=== PATIENT | female | born 1945 | race Caucasian/White ===

== ENCOUNTER 2018-06-28 12:13 | Day surgery (SDC) | payer MEDICARE, OTHER ==
[~2018-06-28] VITALS: Ht 167.6 cm; Wt 117.9 kg
[~2018-06-28 12:13] MED LIST: ALEVE220 MG PO; AMBIEN10 MG PO; CALCIUM600 MG PO; DILAUDID4 MG PO; DOCUSATE SODIU100 MG PO; HYDROCODON-ACE1 EA10 PO; LOSARTAN-HCTZ1 EACH PO; MAGNESIUM250 MG PO; MELOXICAM15 MG PO; MELOXICAM7.5 MG PO; METFORMIN HCL850 MG PO; MULTIVITAMINS1 EAC7 PO; OXYCONTIN10 MG PO; TRAMADOL HCL50 MG PO; XARELTO10 MG PO
--- NOTE | 2018-06-28 13:54 | NUR ---
06/28/18 1354 Bhavani Umana 1344- PT ARRIVES TO PACU. PT ALERT AND ORIENTED. PT REPORTS NO PAIN OR NAUSEA. RESP EVEN AND UNLABORED. OXYGEN SAT HIGH 90'S TO 100% ON RA. 1346- BLOOD SUGAR 107 TAKEN BY SHERRIE AVERY. 1350- PT PASSING FLATUS. 1352- PT SITTING UP IN BED. PT REPORTS NO DIZZINESS, NAUSEA, OR PAIN.
--- NOTE | 2018-06-28 18:51 | OR ---
[facility] [address], [place] [address] Signed DATE OF OPERATION: 06/28/2018 SURGEON: Rosa Sanchez MD PREOPERATIVE DIAGNOSES: 1. History of polyps. 2. History of fundoplication without reflux symptoms currently. POSTOPERATIVE DIAGNOSIS: Sigmoid and left-sided diverticulosis. PROCEDURE: Total colonoscopy to cecum. ANESTHESIA: Intravenous sedation, fentanyl 150 mcg, Versed 8 mg. INDICATION: This 72-year-old white woman is a morbidly obese and is a patient of Susie Lane PA-C. She underwent colonoscopy in the past for benign polyps. She has also had upper endoscopy in the past. She has undergone a colonoscopy in [address] Fowler, community support specialist in [place] as well as upper endoscopy performed. Endoscopy at that time showed no abnormality. Colonoscopy has shown polyps in the past as well as diverticulosis. She has what sounds like a Rubén fundoplication in the [facility]. Review of her operative note for colonoscopy and upper endoscopy in 2011 showed some gastric polyps, which were benign with no esophageal polyps and diverticular changes on colonoscopy. She was admitted at this time to undergo surveillance colonoscopy, but not upper endoscopy. She understands the risks of bleeding, infection, perforation, and wished to proceed. FINDINGS: The prep was good. Complete colonoscopy was undertaken to the cecum. She had diverticula of the sigmoid and left colon, but no polyps or colitis. There were no other abnormalities of concern. DESCRIPTION OF PROCEDURE: The patient was brought to the endoscopy suite and placed in lateral decubitus position given intravenous sedation to the point of slurred speech and nystagmus. Digital rectal exam was found to be normal. The Olympus video upper endoscope was passed in the rectum and manipulated throughout the colon ultimately intubating the cecum itself. Abdominal Electronically Signed By: ROSA SANCHEZ MD 06/28/18 1851 PATIENT NAME: EARLE VILLEGAS OPERATIVE REPORT DATE OF : 47 REPORT #: [id number] PHYSICIAN: ROSA SANCHEZ MD PCP: SUSIE LANE PA-C REPORT IS CONFIDENTIAL AND NOT TO BE RELEASED WITHOUT AUTHORIZATION [facility] [address], [place] [address] Signed wall stabilization was required for full intubation of the cecum, which was accomplished. The ileocecal valve and appendiceal orifice were normal. The scope was withdrawn from that point. Examination throughout showed no sign of abnormality other than diverticula at the left and sigmoid colon. Retroflexed view was normal as well of the rectum. CONCLUDING DIAGNOSES: 1. No evidence of recurrent polyps. 2. Diverticulosis of sigmoid and left colon. PLAN: Recommend high-fiber diet. Consideration for repeat in 5 years based on prior history of polyps, sooner if clinically indicated. She will return to the ongoing care of SARIKA Rodriguez. MD GALLITO Azevedo/NEERAJ /[id number] cc: Susie Lane PA-C Copies: SUSIE LANE PA-C ~ Electronically Signed By: ROSA SANCHEZ MD 06/28/18 1851 PATIENT NAME: EARLE VILLEGAS SUZANNE OPERATIVE REPORT DATE OF : 47 REPORT #: [id number] PHYSICIAN: ROSA SANCHEZ MD PCP: SUSIE LANE PA-C REPORT IS CONFIDENTIAL AND NOT TO BE RELEASED WITHOUT AUTHORIZATION
== END 2018-06-28 14:30 | disposition home or self-care (01) ==
LOC: OPS 12:13 → DS 12:13 → OPS 13:00 → DS 13:00 → OPS 14:30
PROVIDERS: Surgery
PROC: 0DJD8ZZ Inspection of Lower Intestinal Tract, Via Natural or Artificial Opening Endoscopic (ICD-10-PCS; principal; 2018-06-28 13:00)
DX: Z12.11 Encounter for screening for malignant neoplasm of colon (principal); K57.30 Diverticulosis of large intestine without perforation or abscess without bleeding; E11.9 Type 2 diabetes mellitus without complications; I10 Essential (primary) hypertension; K21.0 Gastro-esophageal reflux disease with esophagitis; G47.30 Sleep apnea, unspecified; E66.01 Morbid (severe) obesity due to excess calories; Z98.890 Other specified postprocedural states; Z99.89 Dependence on other enabling machines and devices; Z86.010 Personal history of colon polyps
CPT/HCPCS: G0105; 99153; G0500; J0690; J2250; J3010; J7120

== ENCOUNTER 2020-04-10 06:50 | Day surgery (SDC) | payer MEDICARE, OTHER ==
[~2020-04-10] VITALS: Ht 167.6 cm; Wt 220.0 kg
[~2020-04-10 06:50] MED LIST changes: +LISINOPRIL10 MG PO; +OZEMPIC0.25 MG/0.
[2020-04-10] MEDS ORDERED: COZAAR100 MG PO (07:31)
--- NOTE | 2020-04-10 08:08 | NUR ---
PT USED GLUCOMETER IMPLANT AND GOT A CBG RESULT OF 95. OUR MACHINE HAD A HIGHER READING OF 116. THE PT LEFT IN THE CARE OF RADIOLOGY STAFF AT 0800.
--- NOTE | 2020-04-10 11:49 | NUR ---
PT RETURNED FROM RADIOLOGY AT 1000. AMBULATING IN HALLWAY WAITING FOR OR PROCEDURE TO START.
--- NOTE | 2020-04-10 13:24 | NUR ---
CHECKING ON PT-TAKEN TO IMAGING. WILL FOLLOW
--- NOTE | 2020-04-10 14:03 | NUR ---
04/10/20 1403 Sheets,Erika 1335 PT ARRIVED TO PACU ON 10L VIA MASK, RESP EVEN AND UNLABORED. VSS. 1336 CBG 88, ASPHALT HEATER OPERATOR AWARE AND NO NEW ORDERS. 1340 O2 REMVOED AND PT DENIES NUASEA. PT SIPPING JUICE PER ASPHALT HEATER OPERATOR. HOB INCREASED. 1343 O2 SAT 90%, NC PLACED AT 2L. PAIN MEDICATION GIVEN PER EMAR, PT REPORTS 8/10 PAIN. 1401 PT REPORTS PAIN IS BETTER NOW. 6-7/10 PAIN.
[2020-04-10] MEDS ORDERED: ACETAMINOPHEN500 MG PO (14:10)
[2020-04-10] MEDS ORDERED: IBUPROFEN600 MG PO (14:10)
[2020-04-10] MEDS ORDERED: OXYCODON-ACETA1 EAC2 PO (14:10)
--- NOTE | 2020-04-10 14:36 | NUR ---
REPORT RECIEVED FROM CLINICAL REHABILITATION SPECIALIST. PT DENIES NAUSEA BUT DOES REPORT 5/10 LEFT BREAST PAIN. CRACKERS AND WATER PROVIDED IN ANTICIPATION OF PO MEDICATION. PT ORIENTED TO TIME AND SITUATION.
--- NOTE | 2020-04-10 14:47 | NUR ---
STEADY ON FEET WITH ONE PERSON STAND BY ASSIST FOR AMBULATION TO BATHROOM. VOIDS 400ML CLEAR YELLOW URINE. RETURNS TO BED WITHOUT DIFFICULTY. REPORT GIVEN TO NS.KMR
--- NOTE | 2020-04-10 15:00 | NUR ---
VAISHNAVI BULLOCK CONTACTED FROM CANCER CLINIC TO CONSULT WITH PT REGARDING SUPPORT GARMET. VAISHNAVI IN WITH PT AND PROVIDED SUPPORT GARMET AND ANSWER PT QUESTIONS AND CONCERNS.
--- NOTE | 2020-04-10 15:45 | NUR ---
DISCHARGE INSTRUCTIONS DISCUSSED WITH PT AND FAMILY. QUESTIONS AND CONCERNS ADDRESSED. PT GETTING DRESSED WITH ASSISTANCE FROM DAUGHTER IN LAW.
--- NOTE | 2020-04-10 16:12 | NUR ---
PT DRESSED AND UP TO USE THE RESTROOM. AMBULATES INDEPENDENTLY AND VOIDS WITH NO COMPLICATIONS. PT AND FAMILY WAITING IN FOR TRANSPORTATION.
--- NOTE | 2020-04-10 16:32 | NUR ---
PT LEFT THE UNIT VIA WHEELCHAIR. PT TRANSFERED INDEPENDENTLY FROM WHEELCHAIR TO VEHICLE WITH NO COMPLICATIONS. TRANSPORTATION PROVIDED BY SON, DAUGHTER IN LAW AND 1 OTHER FAMILY MEMBER.
--- NOTE | 2020-04-11 12:08 | OR ---
[facility] [address], [place] [address] Signed DATE OF OPERATION: 04/10/2020 SURGEON: Rosa Sanchez MD PREOPERATIVE DIAGNOSES: 1. Left lateral infiltrating ductal breast carcinoma. 2. Morbid obesity. POSTOPERATIVE DIAGNOSES: 1. Left lateral infiltrating ductal breast carcinoma. 2. Morbid obesity; sentinel lymph node on frozen pathology, negative for metastatic disease. PROCEDURE: 1. Injection of methylene blue dye for sentinel lymph node identification. 2. Left deep axillary sentinel lymph node biopsy. 3. Left needle localized partial mastectomy. ANESTHESIA: General endotracheal; Rosa White CRNA. INDICATIONS: This morbidly obese, 279-pound white woman is a patient of Susie Lane PA-C, underwent mammographies by Dr. Ruiz and found to have a suspicious lesion in the left lateral breast. Ultrasonographic evaluation was undertaken and core biopsy performed confirming infiltrating ductal carcinoma. She has no family history of breast cancer and no risk factors of same. Clinical examination on my part shows a palpable mass in the lateral breast, though Dr. Ruiz thought this may be more related to hematoma. She has no clinically suspicious lymph nodes of the left axilla. She is admitted at this time to undergo excision of the primary tumor as well as sentinel lymph node biopsy. She understands risks of bleeding, infection, cosmetic deformity, need for other indicated procedures, need for additional surgery, and of course a plan already anticipated for postoperative radiation therapy. She understands this and she wished to proceed. FINDINGS: An intensely a blue lymph node was noted of the axilla on the left side concordant to radioactive nuclide uptake. There were no other sentinel nodes identified in the Electronically Signed By: ROSA SANCHEZ MD 04/11/20 1208 PATIENT NAME: EARLE VILLEGAS OPERATIVE REPORT DATE OF : 47 REPORT #: [id number] PHYSICIAN: ROSA SANCHEZ MD PCP: SUSIE LANE PA-C REPORT IS CONFIDENTIAL AND NOT TO BE RELEASED WITHOUT AUTHORIZATION [facility] [address], [place] [address] Signed axilla. The tumor itself was easily palpable, actually the wire emanated to it in a confirmatory way, wide excision was undertaken with a clinically negative margin, and hemoclips applied to the biopsy cavity to further direct radiation therapy postoperatively. DESCRIPTION OF PROCEDURE: The patient was brought to the operating room, given a general endotracheal anesthetic. She had been received from Radiology Suite with the wire emanating from the left breast. The wire was trimmed down in size and the breast prepared with spray Betadine solution and draped sterilely. Prior to preparation, I injected 2 mL of methylene blue dye subdermal and subepithelial area in the upper outer aspect of the left areola. The C-Trak probe was applied to the left axilla after placing in a sterile sleeve showing an area of intense uptake. A small transverse incision was made in that area. Dissection was carried through the deep subcutaneous fatty tissue to the axilla, where a blue lymphatic was easily identified and followed to a blue lymph node over a cm in size. This was concordant to the probe findings as well. The sentinel node was excised and passed for pathology as a sentinel lymph node #1. Further evaluation of the axilla showed no other significant uptake of radionuclide and I saw no other blue lymphatics to indicate additional sentinel lymph nodes. The wound was then packed with plain gauze. The lateral aspect of the left breast was palpated and an obvious mass concordant to the tumor was noted. The wire emanated more medial and superior to this. A lateral curvilinear incision was made and dissection carried through the dermis with electrocautery. Wide resection was undertaken with electrocautery, ultimately removing the wire through the incision, noting it to be concordant to the palpable lesion in fact. Wide excision was undertaken prior to explantation of the specimen from the breast, it was marked with a long stitch laterally, a short stitch superiorly, and a double stitch in the deep aspect. Given the palpable nature of the lesion, the wire and so forth specimen radiograph was deemed unnecessary. The wound was irrigated with sterile saline and electrocautery used for hemostasis. The wound was then closed with interrupted 2-0 Vicryl and the skin closed with running subcuticular 3-0 Vicryl. Frozen pathology on the sentinel lymph node showed it to have no evidence of metastatic disease and therefore no further dissection or operative intervention was needed of the left axilla. That wound was closed with interrupted 2-0 Vicryl in deep layer and running subcuticular 3-0 Vicryl for the skin. Steri-Strips were applied to both sites as was a silver sponge dressing. The patient was ultimately extubated and transported to the recovery room in good condition having suffered no complication. Sponge, needle, and instrument counts were Electronically Signed By: ROSA SANCHEZ MD 04/11/20 1208 PATIENT NAME: EARLE VILLEGAS OPERATIVE REPORT DATE OF : 47 REPORT #: [id number] PHYSICIAN: ROSA SANCHEZ MD PCP: SUSIE LANE PA-C REPORT IS CONFIDENTIAL AND NOT TO BE RELEASED WITHOUT AUTHORIZATION [address] [address] Signed reported as correct x3. MD GALLITO Azevedo/MODL /[id number] cc: MD Susie Boston PA-C Copies: EMILY RUIZ MD, CHLOE K PA-C ~ Electronically Signed By: ROSA SANCHEZ MD 04/11/20 1208 PATIENT NAME: EARLE VILLEGAS OPERATIVE REPORT DATE OF : 47 REPORT #: [id number] PHYSICIAN: ROSA SANCHEZ MD PCP: SUSIE LANE PA-C REPORT IS CONFIDENTIAL AND NOT TO BE RELEASED WITHOUT AUTHORIZATION
--- NOTE | 2020-04-19 16:13 | PATH ---
[facility] [address], [place] [address] Signed SPECIMEN(S): A SENTINEL LYMPH NODE SPECIMEN(S): B LEFT BREAST, LATERAL SPECIMEN SOURCE: A. SENTINEL LYMPH NODE B. LEFT BREAST, LATERAL CLINICAL HISTORY: Left breast malignancy. Short stitch is superior, long stitch is lateral, double is deep. Specimen Time to Fixation- 04/10/2020 1:35:00 PM FROZEN SECTION DIAGNOSIS: A. [place] lymph node: - No evidence of malignancy in provider relations representative section frozen Isabel Marc M.D. 04/10/2020 1:[address] Chahal at 1:23 p.m. on 04/10/20 The Gross Description was prepared using a voice recognition system. The report was reviewed for accuracy; however, sound-alike word errors, addition and/or deletions may occur. If there is any question about this report, please contact Client Services. FINAL PATHOLOGIC DIAGNOSIS: A. [place] lymph node, left axilla, excisional biopsy: - One lymph node with no evidence of malignancy (0/1). - See comment. B. Breast, left, 2:30, 10 cm from the nipple, lumpectomy: - Invasive lobular carcinoma with the following features: - Tumor size: 1.8 x 1.7 x 1.7 cm. - Histologic type: Invasive lobular carcinoma, pleomorphic variant with alveolar growth pattern - Histologic grade (Cadillac histologic score): - Glandular (acinar)/tubular differentiation: Score 3. - Nuclear pleomorphism: Score 2. - Mitotic rate: Score 2. - Overall grade: Grade II of III (total score 7 of 9). - Tumor focality: Single focus of invasive carcinoma. - Ductal carcinoma in situ (DCIS): Not present - Lobular carcinoma in situ (LCIS): Present, pleomorphic LCIS. - Margins: - Invasive carcinoma margins: Uninvolved by invasive carcinoma. PATIENT NAME: EARLE FREITAS PATHOLOGY DATE OF : 47 REPORT #: [id number] PHYSICIAN: OLAF ROMERO PCP: KATHY ERAZO PA-C REPORT IS CONFIDENTIAL AND NOT TO BE RELEASED WITHOUT AUTHORIZATION [facility] [address], [place] [address] Signed - Posterior-Medial margin = 5 mm. - Anterior, lateral, superior, and inferior: Greater than 10 mm. - LCIS margins: - Posterior-Medial margin: 4 mm. - Anterior, lateral, superior, and inferior: Greater than 10 mm. - Regional lymph nodes: Uninvolved by tumor cells. - Total number of lymph nodes examined: 1. - Number of sentinel nodes examined: 1. - Treatment effect in the breast: No known pre-surgical therapy. - Lymphovascular invasion: Not identified. - Estrogen receptor, progesterone receptor, HER2 by IHC and Ki-67 proliferation index: Please refer to previously performed studies ([id number], 03/29/2020) which were reported as ER positive, IN positive, HER2 negative by IHC and Ki-67 proliferation index of 19.3%. - Additional pathologic findings: Biopsy site changes including stromal hemorrhage and fat necrosis, microcalcifications associated with non-neoplastic breast tissue, adenosis. - Final Pathologic Stage (pTNM, AJCC 8th ed.): pT1c pN0 COMMENT: Sections demonstrate an invasive lobular carcinoma with both alveolar and single cell growth patterns. An e-cadherin immunohistochemical stain demonstrates the lack of membranous positivity in both the invasive and in situ components, confirming lobular origin. Smooth muscle myosin heavy chain (SMMHC) highlights the myoepithelial cells surrounding the LCIS. Pancytokeratin (AE1/AE3) was performed on a provider relations representative section of the sentinel lymph node and confirm the absence of tumor cells. As part of [facility]' Quality Improvement Program, this case was reviewed by another member of our pathology staff. NAL:cml:C1NR MICROSCOPIC EXAMINATION: Histologic sections of all submitted blocks are examined by light microscopy. Immunohistochemical stains (with appropriately staining controls) were performed. A pancytokeratin (AE1/AE3) stain was performed on a provider relations representative section of the sentinel lymph node and confirms PATIENT NAME: EARLE FREITAS PATHOLOGY DATE OF : 47 REPORT #: [id number] PHYSICIAN: OLAF PATHOLOGY PCP: KATHY ERAZO PA-C REPORT IS CONFIDENTIAL AND NOT TO BE RELEASED WITHOUT AUTHORIZATION [facility] [address] [place] [address] Signed the absence of metastatic carcinoma. Smooth muscle myosin heavy chain demonstrates the presence of myoepithelial cells surrounding the in situ carcinoma. E-cadherin was performed on one section of the main tumor mass and one section of the hemorrhage adjacent to the tumor. Focal tumor cells are present adjacent to the area of hemorrhage, but were not present on deeper levels on which pancytokeratin (AE1/AE3) was performed. These findings, together with the gross examination, support the pathologic diagnosis. GROSS DESCRIPTION: Two specimens are received in two containers, labeled "Earle Freitas." A. The specimen, labeled "Earle Freitas, sentinel lymph node #1," is received fresh for frozen section diagnosis and consists of a 2.5 x 2.0 x 0.5 cm portion of adipose tissue with a 0.6 x 0.5 x 0.4 cm possible lymph node. The possible lymph node is bisected and half is submitted for frozen section and resubmitted as received in cassette A1. The remaining portion of lymph node is submitted in cassette A2. Only adipose tissue remains within the container. B. The specimen, labeled "Earle Freitas, B," and designated on the requisition "left breast lateral," is received in formalin and consists of a 96 gram, oriented portion of yellow-henderson fibroadipose tissue that is 7.6 x 7.2 x 3.8 cm and has an inserted metal localization wire that is inserted anterior to medially from the superior aspect per Dr. Ruiz. A short suture identifies the superior margin and a double sutured deep/posterior margin. A single long suture is present on the medial aspect. The specimen is inked as follows: Superior - blue; inferior - green; medial - red; lateral - orange; anterior - yellow; and posterior - black. The specimen is serially sectioned from superior to inferior into 10 slices revealing a 1.8 x 1.7 x 1.7 cm, white, firm, stellate mass. This mass is present in slices 7-9, is 1.6 cm from the anterior soft tissue resection margin, 1.9 cm from the posterior soft tissue resection margin, 4.4 cm from the superior soft tissue resection margin, 1.8 cm from the inferior soft tissue resection margin, 0.7 cm from the medial soft tissue resection margin, and 3.6 cm from the lateral soft tissue resection margin. An area of hemorrhagic induration is adjacent and superior to the mass, which is in slices 3-7 measuring 3.5 x 3.0 x 2.6 cm. Approximately 90% of the remaining specimen is a yellow-henderson, greasy adipose tissue and 10% is a white-henderson, rubbery fibrous tissue. PATIENT NAME: EARLE FREITAS PATHOLOGY DATE OF : 47 REPORT #: [id number] PHYSICIAN: OLAF ROMERO PCP: KATHY ERAZO PA-C REPORT IS CONFIDENTIAL AND NOT TO BE RELEASED WITHOUT AUTHORIZATION [facility] [address], [place] [address] Signed Cassette summary: (B1-B2) mass to medial and posterior soft tissue resection margins slice eight and slice nine, perpendicular (B3) lateral soft tissue resection margin, perpendicular (B4) inferior soft tissue resection margin, slice nine (B5) anterior soft tissue resection margin, perpendicular (B6) superior soft tissue resection margin, perpendicular, slice one (B7) additional inferior soft tissue resection margin, slice 10, perpendicular (B8-B10) area of hemorrhagic induration to anterior, and posterior soft tissue resection margins, perpendicular. Cold ischemia time: 24 minutes Approximate Formalin time: Greater than 72 hours. FB (under the direct supervision of a pathologist) ADDITIONAL NOTES: Immunohistochemical and/or in situ hybridization studies were performed on this case with the appropriate positive controls that react as expected. This test was developed and its performance characteristics determined by [facility]. It has not been cleared or approved by the U.S. Food and Drug Administration. The FDA has determined that such clearance or approval is not necessary. This test is used for clinical purposes. It should not be regarded as investigational or for research. [facility] is certified under the Clinical Laboratory Improvement Amendments of 1988 (CLIA) as qualified to perform high complexity clinical laboratory testing. PERFORMING LABORATORY: The frozen section was performed by [facility], [address] [place] [id number] (CLIA# [id number]). The technical component [facility] [place] [address] (Language And Literature Division Chair: Adilene Bingham MD; CLIA# [id number]). Professional interpretation was performed by [facility], [address] [address] (CLIA# [id number]). Diagnostician: Isabel Marc MD Pathologist Electronically Signed 04/19/2020 Copies: PATIENT NAME: EARLE FREITAS PATHOLOGY DATE OF : 47 REPORT #: [id number] PHYSICIAN: OLAF PATHOLOGY PCP: KATHY ERAZO PA-C REPORT IS CONFIDENTIAL AND NOT TO BE RELEASED WITHOUT AUTHORIZATION [facility] [address], [place] [address] Signed ~ PATIENT NAME: EARLE FREITAS PATHOLOGY DATE OF : 47 REPORT #: [id number] PHYSICIAN: OLAF PATHOLOGY PCP: KATHY ERAZO PA-C REPORT IS CONFIDENTIAL AND NOT TO BE RELEASED WITHOUT AUTHORIZATION
== END 2020-04-10 16:25 | disposition home or self-care (01) ==
LOC: OPS 06:50 → DS 06:50 → OPS 08:00 → US 08:00 → EDSTATUS 08:00 → OPS 16:25
PROVIDERS: ATTEND Surgery
PROC: 0HBU0ZZ Excision of Left Breast, Open Approach (ICD-10-PCS; principal; 2020-04-10 10:15)
PROC: 07B60ZX Excision of Left Axillary Lymphatic, Open Approach, Diagnostic (ICD-10-PCS; 2020-04-10 10:15)
PROC: 4A1605H Monitoring of Lymphatic Flow using Indocyanine Green Dye, Open Approach (ICD-10-PCS; 2020-04-10 10:15)
DX: C50.912 Malignant neoplasm of unspecified site of left female breast (principal); I10 Essential (primary) hypertension; E11.9 Type 2 diabetes mellitus without complications; K21.00 Gastro-esophageal reflux disease with esophagitis, without bleeding; G47.30 Sleep apnea, unspecified; E66.01 Morbid (severe) obesity due to excess calories; Z17.0 Estrogen receptor positive status [ER+]; Z79.899 Other long term (current) drug therapy; Z79.84 Long term (current) use of oral hypoglycemic drugs; Z99.89 Dependence on other enabling machines and devices; Z68.41 Body mass index [BMI] 40.0-44.9, adult
CPT/HCPCS: 00404; 19285; 77065; 78195; 88307; 88341; 88342; A9270; A9541; J0690; J1100; J1644; J1885; J2250; J2405; J2704; J2765; J3010; J7121; Q9968

== ENCOUNTER 2024-05-12 06:45 | Day surgery (SDC) | payer MEDICARE, OTHER ==
[2024-05-10 11:38] VITALS: BP 175/89
[~2024-05-12] VITALS: Ht 170.2 cm; Wt 110.5 kg
[~2024-05-12 06:45] MED LIST changes: +ACETAMINOPHEN500 MG PO; +ATORVASTATIN CA10 MG PO; +COZAAR100 MG PO; +IBUPROFEN600 MG PO; +LACTATED RINGER'S 1,000 ML IV SCH; +LASIX20 MG PO; +OXYBUTYNIN CHLO10 MG PO; +OXYCODON-ACETA1 EAC2 PO; +REPAGLINIDE2 MG PO; +TEMAZEPAM30 MG PO; +TRESIBA FL100 UNIT/1 SQ
[2024-05-12] MEDS ORDERED: propofoL 200 MG/20 ML VIAL ONE ×2 (06:59→08:56)
[2024-05-12 07:00] VITALS: BP 139/66
[2024-05-12] MEDS ORDERED: LIDOCAINE HCL 1% 5 ML SDV INJ ONE (07:00)
[2024-05-12] MEDS ORDERED: CEFAZOLIN SODIUM 2 GM/20 ML SYR IV SCH (07:00)
[2024-05-12] MEDS ORDERED: IBLOOD GLUCOSE TEST STRIP 1 EA TEST VI PRN (07:00)
[2024-05-12] MEDS ORDERED: RESTORIL30 MG PO (07:08)
[2024-05-12] MEDS ORDERED: LACTATED RINGER'S 1,000 ML IV ONE (09:02)
--- NOTE | 2024-05-12 10:56 | NUR ---
05/12/24 1056 Rosamaria,Erika 0910 PT ARRIVED TO PACU COUGHING AND SITTING UP IN BED. PT PULLING OFF O2 MASK. SUCTION USED, PT COUGHED LARGE BRIGHT RED CLOT FROM MOUTH. PT ASKING ABOUT PROCEDURE AND PT REASSURING PT AND ORIENTING HER TO PACU. RESP EVEN AND UNLABORED AND RN ENCOURAGES PT TO LEAVE O2 MASK IN PLACE. 0914 O2 REMOVED AND HOB INCREASED. PT CONTINUES TO COUGH OFF AND ON, WITH SCANT DRAINAGE NOTED. PT DENIES CONCERNS, NO NAUSEA OR PAIN. PT ENCOURAGED TO PASS GAS. PT REPORTS SHE VOIDED SOME WITH COUGHING. 0924 MD AT BEDSIDE TALKING TO PT. ALL QUESTIONS ANSWERED. 0940 PT SIPPING WATER AND DENIES CONCERNS. VSS. PT ASKING ABOUT GETTING DRESSED. 1004 PT UP TO BATHROOM AND STEADY ON HER FEET, PT DRESSED HERSELF AND DC INSTRUCTIONS GIVEN. IV REMOVED AND PT DC VIA WC TO HER FRIEND WITH PAPERWORK.
[2024-05-12 10:59] VITALS: BP 170/77
--- NOTE | 2024-05-13 14:25 | OR ---
[facility] [address], [place] [address] Signed DATE OF OPERATION: 05/12/2024 SURGEON: Rosa Sanchez MD PREOPERATIVE DIAGNOSES: 1. Gastroesophageal reflux symptoms. 2. History of polyp of colon and diverticulosis; history of norovirus infection in October 2023. POSTOPERATIVE DIAGNOSES: 1. Hiatal hernia with chronic distal esophagitis without Mcclure epithelium, mild gastric retention of bilious fluid with bile reflux gastritis. 2. Extensive diverticulosis of colon with polyps x2. PROCEDURES: 1. Esophagogastroduodenoscopy with biopsy. 2. Total colonoscopy to cecum with cold morcellation polypectomy x2. ANESTHESIA: Intravenous sedation, propofol; Rosa White CRNA INDICATIONS FOR THE PROCEDURE: This 78-year-old morbidly obese white woman is a patient of SARIKA Rodriguez. She has a history of norovirus infection in October of 2023. Her diarrhea problem has cleared entirely. She was anticipated to have colonoscopy at that time, but did not follow through with it. Additionally, she has ongoing reflux esophagitis for quite some time and underwent upper endoscopy in [facility] in 1996 and was thought to have "esophageal polyps." She was recommended to have upper endoscopy while living in [place], [place] on a routine basis, which she has not done. She has no current symptoms of dysphagia. Her last colonoscopy was in 2019 that I performed, which showed multiple diverticula, but no polyps and a previous colonoscopy in 2011 in [place], showed a 3 mm polyp in the transverse colon and diverticulosis. She is admitted at this time to undergo upper endoscopy and colonoscopy. She understands the risk of bleeding, infection, perforation, and so on. FINDINGS: Upper endoscopy showed mild distal chronic esophagitis, but no sign of Mcclure epithelium, stricture, or neoplasm. There were no varices. The stomach had retained bilious mucoid material and likely bile reflux gastritis. The pylorus was slightly Electronically Signed By: ROSA SANCHEZ MD 05/13/24 1425 PATIENT NAME: EARLE VILLEGAS OPERATIVE REPORT DATE OF : 47 REPORT #: [id number] PHYSICIAN: ROSA SANCHEZ MD PCP: SUSIE LANE PA-C REPORT IS CONFIDENTIAL AND NOT TO BE RELEASED WITHOUT AUTHORIZATION [facility] [address], [place] [address] Signed difficult to pass through, though it appeared widely open. The duodenum itself was normal. Retroflexed view confirmed a poor flap valve consistent with small hiatal hernia. There was no evidence of Mcclure epithelium of the distal esophagus, so it did have chronic inflammation. Mid and upper portions were normal. On colonoscopy, the prep was good. Complete colonoscopy was undertaken to the cecum. There was a small polyp of the right colon as well as a very small polyp on retroflexed view of the rectum. Extensive diverticular changes were noted throughout. There were no other findings of concern. DESCRIPTION OF PROCEDURE: The patient was brought to the surgical endoscopy suite and placed in lateral decubitus position, given propofol infusional sedation by the molded goods embossing press operator. A bite block was placed. An Olympus video upper endoscope was passed into the hypopharynx. The vocal cords appeared normal. Scope was advanced into the esophagus without problem. Throughout its length it looked reasonably normal without sign of stricture, neoplasm, or Mcclure epithelium. Scope was passed to the stomach, which was insufflated with air. There was retention of some mucoid material and bile, likely related to diminished gastric motility as she is on Ozempic. This material was suctioned free. The pylorus appeared widely patent, though was somewhat challenging to pass through into the duodenum, but was accomplished. There was prominence of the ampulla of Vater, but no sign of neoplastic change. Biopsies were taken of the duodenum to assess for celiac disease. The scope was withdrawn and biopsies then taken of the antrum for both KEYLA and pathologic testing. Retroflexed view showed a poor flap valve consistent with small hiatal hernia. Scope was straightened, withdrawn and biopsies then taken of the distal esophageal mucosa, and ultimately the mid esophagus. Further withdrawal showed no other abnormality. Plans were then made for colonoscopy. Additional sedation was given by the molded goods embossing press operator. Digital rectal examination performed. An Olympus video colonoscope passed into the rectum and manipulated throughout the colon, noting numerous diverticula of the sigmoid and left colon. Indeed, diverticula were noted throughout the colon. Upon visualization of the cecum, irrigation was undertaken. The scope withdrawn. In the mid ascending colon, there was a small linear appearing polyp, this was excised with cold morcellation technique, measured less than 5 mm. Further withdrawal showed only diverticulosis until the retroflexed view of the rectum showed a small polyp, this was excised with cold morcellation technique as well. Scope was straightened, withdrawn, and removed. The patient was taken to the recovery room in good condition. CONCLUDING DIAGNOSES: 1. Hiatal hernia and poor flap valve with mild chronic distal esophagitis. No evidence of Mcclure's and certainly no esophageal "polyps.". Electronically Signed By: RSOA SANCHEZ MD 05/13/24 1425 PATIENT NAME: EARLE VILLEGAS OPERATIVE REPORT DATE OF : 47 REPORT #: [id number] PHYSICIAN: ROSA SANCHEZ MD PCP: SUSIE LANE PA-C REPORT IS CONFIDENTIAL AND NOT TO BE RELEASED WITHOUT AUTHORIZATION [facility] [address] [place], [place] [address] Signed 2. Extensive diverticulosis and polyps x2. PLAN: Recommend repeat colonoscopy in 5-7 years based on current guidelines, sooner if symptoms should develop. Recommend high-fiber diet. As regard to reflux issues, consideration will be made for PPI use as she appears to not be on any anti-reflux medications currently. MD GALLITO Azevedo/NEERAJ /[id number] cc: Susie Lane PA-C Copies: SUSIE LANE PA-C ~ Electronically Signed By: ROSA SANCHEZ MD 05/13/24 1425 PATIENT NAME: EARLE VILLEGAS OPERATIVE REPORT DATE OF : 47 REPORT #: [id number] PHYSICIAN: ROSA SANCHEZ MD PCP: SUSIE LANE PA-C REPORT IS CONFIDENTIAL AND NOT TO BE RELEASED WITHOUT AUTHORIZATION
--- NOTE | 2024-05-17 09:03 | PATH ---
[facility] [address], [place] [address] Signed SPECIMEN(S): A LOWER ESOPHAGEAL BIOPSY SPECIMEN(S): B DUODENAL BIOPSY SPECIMEN(S): C ANTRUM BIOPSY SPECIMEN(S): D MIDDLE ESOPHAGEAL BIOPSY SPECIMEN(S): E ASCENDING POLYP SPECIMEN(S): F RECTAL POLYP SPECIMEN SOURCE: A. LOWER ESOPHAGEAL BIOPSY B. DUODENAL BIOPSY C. ANTRUM BIOPSY D. MIDDLE ESOPHAGEAL BIOPSY E. ASCENDING POLYP F. RECTAL POLYP CLINICAL HISTORY: Diarrhea, GERD, diverticulosis FINAL PATHOLOGIC DIAGNOSIS: A. Esophagus, lower, biopsy: - Esophageal squamous mucosa with no significant pathologic changes B. Duodenum, biopsy: - Duodenal mucosa with no significant pathologic changes C. Stomach, antrum, biopsy: - Gastric antral mucosa with reactive gastropathy - Fragment of esophageal squamous mucosa with no significant pathologic changes - Negative for Helicobacter pylori with HE stains D. Esophagus, middle, biopsy: - Esophageal squamous mucosa with no significant pathologic changes E. Colon, ascending, polypectomy: - Colonic mucosa with no significant pathologic changes F. Rectum, polypectomy: - Hyperplastic polyp BRP MICROSCOPIC EXAMINATION: Histologic sections of all submitted blocks are examined by light microscopy. These findings, together with the gross examination, support the pathologic diagnosis. PATIENT NAME: EARLE VILLEGAS PATHOLOGY DATE OF : 47 REPORT #: [id number] PHYSICIAN: OLAF PATHOLOGY PCP: KATHY ERAZO PA-C REPORT IS CONFIDENTIAL AND NOT TO BE RELEASED WITHOUT AUTHORIZATION [facility] [address], [place] [address] Signed GROSS DESCRIPTION: A. The specimen, labeled and designated "Kleng, lower esophageal biopsy," is received in formalin and consists of two henderson soft tissue fragments, ranging from 0.2-0.3 cm. Entirely submitted in (A1). B. The specimen, labeled and designated "Kleng, duodenal biopsy," is received in formalin and consists of two henderson soft tissue fragments, ranging from 0.4-0.5 cm. Entirely submitted in (B1). C. The specimen, labeled and designated "Kleng, antrum biopsy," is received in formalin and consists of two henderson soft tissue fragments, ranging from 0.3-0.5 cm. Entirely submitted in (C1). D. The specimen, labeled and designated "Kleng, middle esophageal biopsy," is received in formalin and consists of three henderson soft tissue fragments, ranging from 0.2-0.6 cm. Entirely submitted in (D1). E. The specimen, labeled and designated "Kleng, ascending polyp," is received in formalin and consists of two henderson soft tissue fragments, ranging from 0.2-0.3 cm. Entirely submitted in (E1). F. The specimen, labeled and designated "Kleng, rectal polyp," is received in formalin and consists of two henderson soft tissue fragments, ranging from 0.3-0.5 cm. Entirely submitted in (F1). VB (under the direct supervision of a pathologist) The Gross Description was prepared using a voice recognition system. The report was reviewed for accuracy; however, sound-alike word errors, addition and/or deletions may occur. If there is any question about this report, please contact Client Services. ADDITIONAL NOTES: Immunohistochemical and/or in situ hybridization studies if performed in this case included appropriate positive controls that reacted as expected. This test was developed and its performance characteristics determined by [facility]. It has not been cleared or approved by the U.S. Food and Drug Administration. The FDA has determined that such clearance or approval is not necessary. This test is used for clinical purposes. It should not be regarded as investigational or for research. [facility] is certified under the Clinical Laboratory Improvement Amendments of 1988 (CLIA) as qualified to perform high complexity clinical laboratory testing. PERFORMING LABORATORY: Technical component was performed by [facility], [address] [place] [id number] (CLIA# [id number]). Professional interpretation was PATIENT NAME: EARLE VILLEGAS PATHOLOGY DATE OF : 47 REPORT #: [id number] PHYSICIAN: OLAF ROMERO PCP: KATHY ERAZO PA-C REPORT IS CONFIDENTIAL AND NOT TO BE RELEASED WITHOUT AUTHORIZATION [facility] [address] [facility] [place] [address] Signed performed by [facility], [address] [address], [place] [address] (CLIA# [id number]). Diagnostician: Bienvenido Andrea MD Pathologist Electronically Signed 05/17/2024 Copies: ~ PATIENT NAME: EARLE VILLEGAS PATHOLOGY DATE OF : 47 REPORT #: [id number] PHYSICIAN: OLAF PATHOLOGY PCP: KATHY ERAZO PA-C REPORT IS CONFIDENTIAL AND NOT TO BE RELEASED WITHOUT AUTHORIZATION
== END 2024-05-12 10:04 | disposition home or self-care (01) ==
LOC: DS 06:45
PROVIDERS: ATTEND Surgery
PROC: 0DB28ZX Excision of Middle Esophagus, Via Natural or Artificial Opening Endoscopic, Diagnostic (ICD-10-PCS; 2024-05-12)
PROC: 0DB38ZX Excision of Lower Esophagus, Via Natural or Artificial Opening Endoscopic, Diagnostic (ICD-10-PCS; 2024-05-12)
PROC: 0DBF8ZZ Excision of Right Large Intestine, Via Natural or Artificial Opening Endoscopic (ICD-10-PCS; 2024-05-12)
PROC: 0DBP8ZZ Excision of Rectum, Via Natural or Artificial Opening Endoscopic (ICD-10-PCS; 2024-05-12)
PROC: 0DB98ZX Excision of Duodenum, Via Natural or Artificial Opening Endoscopic, Diagnostic (ICD-10-PCS; principal; 2024-05-12 08:30)
PROC: 0DB68ZX Excision of Stomach, Via Natural or Artificial Opening Endoscopic, Diagnostic (ICD-10-PCS; 2024-05-12 08:30)
DX: K21.00 Gastro-esophageal reflux disease with esophagitis, without bleeding (principal); K44.9 Diaphragmatic hernia without obstruction or gangrene; K31.9 Disease of stomach and duodenum, unspecified; K63.5 Polyp of colon; K62.1 Rectal polyp; K57.30 Diverticulosis of large intestine without perforation or abscess without bleeding; E66.01 Morbid (severe) obesity due to excess calories; I10 Essential (primary) hypertension; E11.9 Type 2 diabetes mellitus without complications; Z68.39 Body mass index [BMI] 39.0-39.9, adult
CPT/HCPCS: 00813; 88305; J0690; J2704; J7121

== ENCOUNTER 2024-08-25 06:50 | Day surgery (SDC) | payer MEDICARE, OTHER ==
[~2024-08-25] VITALS: Ht 170.2 cm; Wt 109.0 kg
[~2024-08-25 06:50] MED LIST changes: +LIPITOR10 MG PO; +OCUVITE ADULT1 EAC3 PO; +OMEPRAZOLE20 MG PO; -OZEMPIC0.25 MG/0.; +OZEMPIC1 MG/0.71; +RESTORIL30 MG PO
[2024-08-25] MEDS ORDERED: CEFAZOLIN SODIUM 2 GM/20 ML SYR IV SCH (07:00)
[2024-08-25] MEDS ORDERED: LIDOCAINE HCL 1% 5 ML SDV INJ ONE (07:00)
[2024-08-25] MEDS ORDERED: HEParin SOD (PORCINE) 5,000 UNIT/ML SDV SUB-Q SCH (07:00)
[2024-08-25] MEDS ORDERED: IBLOOD GLUCOSE TEST STRIP 1 EA TEST VI PRN ×2 (07:00→07:15)
[2024-08-25 07:05] VITALS: BP 158/80
[2024-08-25] MEDS ORDERED: MORPHINE SULFATE 10 MG/ML VIAL IV PRN (07:15)
[2024-08-25] MEDS ORDERED: METOCLOPRAMIDE HCL 10 MG/2 ML SDV IV PRN (07:15)
[2024-08-25] MEDS ORDERED: droPERidol 5 MG/2 ML VIAL IV PRN (07:15)
[2024-08-25] MEDS ORDERED: NALOXONE HCL 0.4 MG SYR IV PRN ×2 (07:15→11:45)
[2024-08-25] MEDS ORDERED: ondansetron HCL 4 MG/2 ML VIAL IV PRN (07:15)
[2024-08-25] MEDS ORDERED: PROCHLORPERAZINE EDISYLATE 10 MG/2 ML VIAL IV PRN (07:15)
[2024-08-25] MEDS ORDERED: fentaNYL citrate 50 MCG/ML SDV IV PRN (07:15)
[2024-08-25] MEDS ORDERED: propofoL 200 MG/20 ML VIAL ONE ×2 (08:00→09:39)
[2024-08-25] MEDS ORDERED: METOCLOPRAMIDE HCL 10 MG/2 ML SDV ONE (08:00)
[2024-08-25] MEDS ORDERED: LACTATED RINGER'S 1,000 ML IV ONE (08:00)
[2024-08-25] MEDS ORDERED: ondansetron HCL 4 MG/2 ML VIAL ONE (08:00)
[2024-08-25] MEDS ORDERED: KETOROLAC TROMETHAMINE 30 MG/ML VIAL ONE (08:00)
[2024-08-25] MEDS ORDERED: DEXAMETHASONE SOD PHOS 4 MG/ML VIAL ONE (08:00)
[2024-08-25] MEDS ORDERED: FAMOTIDINE 20 MG/ 2 ML VIAL ONE (08:01)
[2024-08-25] MEDS ORDERED: fentaNYL citrate 100 MCG/2 ML VIAL ONE (08:01)
[2024-08-25] MEDS ORDERED: Methylene Blue 100 MG/10 ML SDV ONE (08:39)
--- NOTE | 2024-08-25 09:16 | NUR ---
0916 heparin inj given to metal precision machine assembler vladislav. SERVICE OPERATOR REQUESTS TO GIVE IT TO PT WHEN UNDER ANESTHESIA DUE TO PT NOT TOLERATING PAIN WELL WITH INJECTION.
[2024-08-25] MEDS ORDERED: METOPROLOL TARTRATE 5 MG/5 ML VIAL ONE (09:47)
[2024-08-25] MEDS ORDERED: MORPHINE SULFATE 10 MG/ML VIAL ONE (10:20)
[2024-08-25] MEDS ORDERED: ACETAMINOPHEN 1,000 MG/100 ML VIAL ONE (10:33)
--- NOTE | 2024-08-25 11:36 | NUR ---
08/25/24 1136 Herminia Duncan 1120-PATIENT ARRIVED TO PACU ON 10L MASK NONAROUSABLE ORAL AIRWAY IN PLACE. SR HR 80'S. IV TO LEFT UPPER ARM NOT INFUSING. IV HAS DIFFICULT TIME FLUSHING AND WAS INFILTRATED. JUAN RN AT BEDSIDE WITH ULTRASOUND FOR IV. 1125-PATIENT AROUSING OPENING EYES ORAL AIRWAY REMOVED. ORIENTED TO PACU 6L MASK RR EVEN. 1132-PATIENT AWAKE ON RA 93% RR EVEN. REPORTS PAIN "4" BUT "IM OK" CHECKING GLUCOSE USING PATIENTS PHONE TO LEFT ARM GLUCOSE LEVEL 119. PATIENT REPORTS "I CAN TAKE THINGS ORALLY" DISCUSSED PAIN MANAGEMENT WITH PATIENT AND IV TO BE PLACED VIA ULTRASOUND.
[2024-08-25] MEDS ORDERED: OXYCODONE/APAP 7.5/325 TAB PO PRN (11:45)
[2024-08-25] MEDS ORDERED: IBUPROFEN600 MG PO (11:45)
[2024-08-25] MEDS ORDERED: ACETAMINOPHEN500 MG PO (11:45)
[2024-08-25] MEDS ORDERED: LACTATED RINGER'S 1,000 ML IV SCH (11:45)
[2024-08-25] MEDS ORDERED: OXYCODON-ACETA1 EAC2 PO (11:45)
[2024-08-25] MEDS ORDERED: ACETAMINOPHEN 500 MG TAB PO PRN (11:45)
[2024-08-25] MEDS ORDERED: IBUPROFEN 600 MG TAB PO PRN (11:45)
[2024-08-25 12:15] VITALS: BP 107/80
--- NOTE | 2024-08-25 12:26 | NUR ---
1210 PT ARRIVED TO DAY SURGERY FROM PACU VIA STREACHER. PT AWAKE AND ORIENTED. PT SIPPING ON WATER. IV HAD BEEN REPLACED DUE TO PREVIOUS IV INFLILTRATED. NEW IV ASSESSED. PREVIOUS SITE HEAT PACKED. VITALS TAKEN. PT HAS JELLO AT BEDSIDE. PT REPORTS TOLERABLE 3/10 PAIN AT THIS TIME. PT REPORTS NO NAUSEA AT THIS TIME. PT HAS CALL LIGHT WITHIN REACH, PERSONAL ITEMS WITHIN REACH. BED IS LOW AND LOCKED.
[2024-08-25 13:10] VITALS: BP 153/67
--- NOTE | 2024-08-25 13:20 | NUR ---
1318 spoke with pt about pain. pt reports 6/10 non tolerable pain. pain medication given per emar. pt resting in bed with call light within reach
--- NOTE | 2024-08-25 13:26 | NUR ---
1310: VS CHECKED. RIGHT AXILLARY DRESSING CDI. RATES PAIN /10. WOULD LIKE PAIN MEDICATION. TOLERATING JELLO THUS FAR. IV SALINE LOCKED. CALL LIGHT WITHIN REACH.
--- NOTE | 2024-08-26 08:21 | OR ---
[facility] [address], [place] [address] Signed DATE OF OPERATION: 08/25/2024 SURGEON: Rosa Sanchez MD PREOPERATIVE DIAGNOSES: 1. 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 2. History of left infiltrating lobular carcinoma, status post partial mastectomy and radiation therapy. POSTOPERATIVE DIAGNOSES: 1. 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 2. History of left infiltrating lobular carcinoma, status post partial mastectomy and radiation therapy. PROCEDURES: 1. Injection of methylene blue for sentinel lymph node identification. 2. Right deep axillary sentinel lymph node biopsy x4. 3. Right partial mastectomy with LANRE panel sewer localization. ANESTHESIA: General, LMA; Rosa White CRNA and local 10 mL of 0.25% Marcaine with epinephrine. INDICATIONS: This 78-year-old woman is known to me from the past and patient of SARIKA Rodriguez. She has undergone infiltrating lobular breast cancer treatment on the left side, which included resection and radiation therapy and hormonal management. She was found to have a lobulated lesion in the right breast in the upper outer aspect, for which image guided biopsy confirmed infiltrating ductal carcinoma, grade 1. There is no palpable mass and no axillary adenopathy. Her options of management have been reviewed with her and she opts for breast conservation therapy. A LANRE panel sewer localization technique is anticipated to allow for resection of the primary tumor as well as sentinel lymph node biopsy. She understands the risk of bleeding, infection, cosmetic deformity, need for additional surgical treatment, need for consideration of radiation therapy and possible chemotherapy depending on the pathologic findings. Understanding this, she wished to proceed. FINDINGS: The signal for the LANRE panel sewer was rather diminished initially, but ultimately did allow for localization of the tumor, which was in the lateral breast on the right side. Wide Electronically Signed By: ROSA SANCHEZ MD 08/26/24 0821 PATIENT NAME: EARLE VILLEGAS OPERATIVE REPORT DATE OF : 47 REPORT #: [id number] PHYSICIAN: ROSA SANCHEZ MD PCP: SUSIE LANE PA-C REPORT IS CONFIDENTIAL AND NOT TO BE RELEASED WITHOUT AUTHORIZATION [facility] [address], [place] [address] Signed resection was undertaken. The specimen radiograph confirmed the tumor marker as well as the LANRE panel sewer implement to be in the resected specimen. Additional breast tissue was resected superiorly, laterally and superficially to the original biopsy site so as to assure a negative margin. The remaining cavity from excision was marked with large clips to guide radiation therapy as appropriate. As regard to the sentinel lymph nodes, four such lymph nodes were identified with good uptake of methylene blue and radionuclide. There were no other findings of concern. DESCRIPTION OF PROCEDURE: The patient was brought to the operating room, given a general LMA type anesthetic. Preoperative antibiotic Ancef was given. She was on Bactrim therapy as well for UTI. After satisfactory general LMA anesthesia, the right breast and axilla were prepared with a chlorhexidine solution. I had injected 1 mL of methylene blue dye in the subepithelial space in the upper outer aspect of the areola for additional localization. After sterile draping, the C-Trak probe was used to interrogate the axilla, which showed level high uptake in a focal area. A small transverse incision was made there. A very large and bulky right breast was retracted to the medial aspect. Dissection was carried through the subcutaneous tissue with blunt, electrocautery dissection identifying well intense blue dye within the lymphatic channels. This allowed for dissection into the depths of the axilla initially identifying a 1 cm lymph node that was intensely blue with good uptake of radionuclide. This was excised and sent as sentinel lymph node #1. Further dissection into the depths of the fatty axilla identified two other such nodes, which were excised. Some clips were applied to their lymphatic pedicles as well. Further dissection revealed another area with intense uptake of radionuclide in the less so of the dye, but this too was excised and considered sentinel lymph node #4. All were confirmed with the C-Trak probe, ex Vivo that was sent as sentinel lymph nodes x4 for permanent pathology. Irrigation in the axilla showed no sign of ongoing bleeding. The wound was packed with laparotomy pad and attention turned towards the breast itself. The breast was retracted medially and using the LANRE panel sewer probe, an area in uptake was identified in the lateral breast. A small incision was made and dissection carried through the subcutaneous tissue with electrocautery. Using the probe as a guide, further dissection was undertaken more medially and ultimately relatively deep within the breast. With a triangulation method, the area in question was more fully identified and widely resected with electrocautery. Upon explantation of that tissue, a short stitch was used to ariana the superior margin, long stitch lateral. Quite clearly the LANRE implement was within the substance of the tissue. This was passed for specimen radiograph and confirmed by the radiologist to include not only LANRE panel sewer implement, but the localizing clip as well. Given the bulking nature of her axilla and uncertainty as to margin, an additional segment of breast tissue superiorly, laterally and Electronically Signed By: ROSA SANCHEZ MD 08/26/24 0821 PATIENT NAME: EARLE VILLEGAS OPERATIVE REPORT DATE OF : 47 REPORT #: [id number] PHYSICIAN: ROSA SANCHEZ MD PCP: SUSIE LANE PA-C REPORT IS CONFIDENTIAL AND NOT TO BE RELEASED WITHOUT AUTHORIZATION [address] [address] Signed superficially was excised and marked with a short stitch superior and a long stitch lateral also. Irrigation was undertaken with sterile water. Any bleeding areas were easily secured with electrocautery, but the breast area was also marked with large clips to guide radiation therapy in the future if so embarked upon. The wound was then closed in layers of interrupted 2-0 Vicryl and running subcuticular 3-0 Vicryl for the skin. Steri-Strips and an Acticoat dressing were later applied. Examination of the axilla showed excellent hemostasis that wound was closed in layers with interrupted 2-0 Vicryl in a running subcuticular 3-0 Vicryl for the skin. Steri-Strips were applied as was an active dressing there. The patient tolerated the procedure well. Blood loss was less than 10 mL in aggregate. Sponge, needle, and instrument counts reported as correct x3. MD GALLITO Azevedo/NEERAJ /[id number] cc: Susie Lane PA-C Copies: SUSIE LANE PA-C ~ Electronically Signed By: ROSA SANCHEZ MD 08/26/24 0821 PATIENT NAME: EARLE VILLEGAS OPERATIVE REPORT DATE OF : 47 REPORT #: [id number] PHYSICIAN: ROSA SANCHEZ MD PCP: SUSIE LANE PA-C REPORT IS CONFIDENTIAL AND NOT TO BE RELEASED WITHOUT AUTHORIZATION
--- NOTE | 2024-09-21 16:12 | PATH ---
[facility] [address] [place], [place] [address] Signed THIS IS AN ADDENDUM REPORT SPECIMEN(S): A SENTINEL LYMPH NODE #1 SPECIMEN(S): B SENTINEL LYMPH NODE #2 AND #3 SPECIMEN(S): C SENTINEL LYMPH NODE #4 SPECIMEN(S): D RIGHT BREAST SPECIMEN(S): E ADDITIONAL RIGHT LATERAL BREAST SPECIMEN SOURCE: A. SENTINEL LYMPH NODE #1 B. SENTINEL LYMPH NODE #2 AND #3 C. SENTINEL LYMPH NODE #4 D. RIGHT BREAST E. ADDITIONAL RIGHT LATERAL BREAST CLINICAL HISTORY: Infiltrating ductal carcinoma of right breast. FINAL PATHOLOGIC DIAGNOSIS: A. Lymph node, sentinel #1, excision: - One lymph node, negative for metastatic carcinoma (0/1) B. Lymph node, sentinel #2 and #3, excision: - Three lymph nodes, negative for metastatic carcinoma (0/3) C. Lymph node, sentinel #4, excision: - Two lymph nodes, negative for metastatic carcinoma (0/2) D. Breast, right lateral, excision: - Invasive ductal carcinoma, see synoptic report - Invasive carcinoma comes within 1 mm of the posterior margin, see comment E. Breast, "additional right lateral breast tissue", excision: - Invasive ductal carcinoma, see synoptic report - Invasive carcinoma involves the posterolateral margin, see comment INVASIVE CARCINOMA OF THE BREAST: Resection Applies To: A-E SPECIMEN Procedure: Excision (less than total mastectomy) Specimen Laterality: Right TUMOR Tumor Site: Lateral Histologic Type: Invasive carcinoma of no special type (ductal) Glandular (Acinar) / Tubular Differentiation: Score 2 PATIENT NAME: EARLE FREITAS PATHOLOGY DATE OF : 47 REPORT #: [id number] PHYSICIAN: OLAF ROMERO PCP: KATHY ERAZO PA-C REPORT IS CONFIDENTIAL AND NOT TO BE RELEASED WITHOUT AUTHORIZATION [facility] [address] [place], [place] [address] Signed Nuclear Pleomorphism: Score 1 Mitotic Rate: Score 1 Overall Grade: Grade 1 (scores of 3, 4 or 5) Tumor Size: Greatest dimension of largest invasive focus (Millimeters) - 11 mm Tumor Focality: Multiple foci of invasive carcinoma Number of Foci: 2 Sizes of Individual Foci in Millimeters (mm): 11 mm, 5 mm Ductal Carcinoma In Situ (DCIS): Not identified Lymphatic and / or Vascular Invasion: Not identified Microcalcifications: Present in invasive carcinoma, Present in non-neoplastic tissue Treatment Effect in the Breast: No known presurgical therapy MARGINS Margin Status for Invasive Carcinoma: Cannot be determined - See comment REGIONAL LYMPH NODES Regional Lymph Node Status: All regional lymph nodes negative for tumor Total Number of Lymph Nodes Examined (sentinel and non-sentinel): 5 Number of [place] Nodes Examined: 5 pTNM CLASSIFICATION (AJCC 8th Edition) pT Category: pT1c T Suffix: (m) pN Category: pN0 N Suffix: (sn) ADDITIONAL FINDINGS Additional Findings: Biopsy site changes, sclerosing adenosis Breast Biomarker Testing Performed on Previous Biopsy: Estrogen Receptor (ER) Status: Positive (greater than 10% of cells demonstrate nuclear positivity) Percentage of Cells with Nuclear Positivity: 91-100% Progesterone Receptor (PgR) Status: Positive Percentage of Cells with Nuclear Positivity: 81-90% HER2 (by immunohistochemistry): Negative (Score 1+) Testing Performed on COMMENT: Parts D and E contain morphologically similar but anatomically distinct invasive ductal carcinomas, interpreted as multifocality. The invasive carcinoma in part D approaches the posterior margin of that specimen, and the invasive carcinoma in part E involves the posterior lateral margin of that specimen. The anatomic relationship between parts D and E is not specified, therefore the final PATIENT NAME: EARLE FREITAS PATHOLOGY DATE OF : 47 REPORT #: [id number] PHYSICIAN: OLAF PATHOLOGY PCP: KATHY ERAZO PA-C REPORT IS CONFIDENTIAL AND NOT TO BE RELEASED WITHOUT AUTHORIZATION [address] [address] Signed margin status cannot be determined, and requires correlation with radiographic and operative information. For part D, immunohistochemical stains for p63 and smooth muscle myosin heavy chain are performed and support the above interpretation. As part of [facility] Quality Improvement Program, this case was reviewed by another member of our pathology staff. BRP MICROSCOPIC EXAMINATION: Histologic sections of all submitted blocks are examined by light microscopy. These findings, together with the gross examination, support the pathologic diagnosis. GROSS DESCRIPTION: A. The specimen, labeled and designated "Violet Freitas, " and designated on the requisition "sentinel lymph node #1," is received in formalin and consists of 1.5 x 1.4 x 0.6 cm aggregate of yellow-henderson adipose tissue that upon dissection reveals one possible lymph node with a blue dye discoloration that is 0.9 cm in greatest dimension. The lymph node is sectioned and entirely submitted in cassette A1. Only adipose tissue remains within the container. B. The specimen, labeled and designated "Violet Freitas, " and designated on the requisition "sentinel lymph node #2 and #3," is received in formalin and consists of 4.3 x 2.5 x 1.2 cm aggregate of yellow-henderson adipose tissue that upon dissection reveals three possible lymph nodes that measure up to 1.1 cm in greatest dimension. The lymph nodes are entirely submitted. Only adipose tissue remains within the container. Cassette Summary: (B1) two possible lymph nodes, submitted whole (B2) one possible lymph node, sectioned C. The specimen, labeled and designated "Violet Freitas, " and designated on the requisition "sentinel lymph node #4," is received in formalin and consists of 3.5 x 2.9 x 1.6 cm portion of yellow-henderson multilobulated adipose tissue that upon dissection reveals two possible lymph nodes that measure 0.6 cm and 3.2 cm in greatest dimension. The lymph nodes are entirely submitted for histologic examination. Only adipose tissue remains within the container. Cassette Summary: (C1) one possible lymph node, bisected (C2-C3) one possible lymph node, sectioned PATIENT NAME: EARLE FREITAS PATHOLOGY DATE OF : 47 REPORT #: [id number] PHYSICIAN: OLAF ROMERO PCP: KATHY ERAZO PA-C REPORT IS CONFIDENTIAL AND NOT TO BE RELEASED WITHOUT AUTHORIZATION [address] [address] Signed D. The specimen, labeled and designated "Violet Freitas, " and designated on the requisition "right lateral breast tissue-long stitch = lateral Short stitch = superior," is received in formalin and consists of 51 gram oriented portion of yellow-henderson fibroadipose tissue that is 10.6 x 5.9 x 2.4 cm. A short suture is present and identifies the superior margin; a long suture identifies the lateral margin. The specimen is inked as follows: superior - blue; inferior - green; medial - red; lateral - orange; anterior - yellow; and posterior - black. The specimen is serially sectioned from medial to lateral into 18 slices revealing a white firm stellate mass present in slices 13-15, measuring 1.2 x 0.7 x 0.7 cm. The mass contains a biopsy clip and a metallic receiver/laborer detector, is 1.2 cm from the anterior soft tissue margin, 0.1 cm from the posterior soft tissue margin, 2.0 cm from the superior soft tissue margin, 2.7 cm from the inferior soft tissue margin, 6.3 cm from the medial soft tissue margin, and 2.1 cm from the lateral soft tissue margin. Approximately 90% of the remaining specimen is a yellow-henderson greasy adipose tissue and 10% is a white-henderson rubbery fibrous tissue. Health Claims Examiner sections are submitted in 11 cassettes. Cassette Summary: (D1) slice one, medial soft tissue resection margin, perpendicular (D2) fibroadipose tissue medial, adjacent to mass, slice 12 (D3-D5) slice 13 with mass (D6-D8) slice 14 with mass (D9) additional section of mass to posterior soft tissue resection margin, perpendicular, slice 15 (D10) fibroadipose tissue lateral, adjacent to mass, slice 16 (D11) slice 18, lateral soft tissue resection margin, perpendicular Time of collection: 10:34 AM August 25, 2024. Time into formalin: 10:45 AM August 25, 2024. Processor load time: 12 PM August 26, 2024. Ischemic time: 11 minutes Total fixation time in formalin: 25 hours 15 minutes The ASCO/CAP guidelines related to HER2 and hormone receptor testing in breast specimens have been met and the specimen has been placed in formalin within one hour and fixed in 10% neutral buffered formalin for 6 to 72 hours. E. The specimen, labeled and designated "Violet Freitas, " and designated on the requisition "additional right lateral breast tissue,"and consists of 73 gram oriented portion of yellow-henderson fibroadipose PATIENT NAME: EARLE FREITAS PATHOLOGY DATE OF : 47 REPORT #: [id number] PHYSICIAN: OLAF PATHOLOGY PCP: KATHY ERAZO PA-C REPORT IS CONFIDENTIAL AND NOT TO BE RELEASED WITHOUT AUTHORIZATION [facility] [address] [place], [place] [address] Signed tissue that is 9.3 x 6.4 x 3.5 cm. A short suture is present and identifies the superior margin; a long suture identifies the lateral margin. The specimen is inked as follows: superior - blue; inferior - green; medial - red; lateral - orange; anterior - yellow; and posterior - black. The specimen is serially sectioned from superior to inferior into 13 slices revealing a 0.9 x 0.7 x 0.6 cm dense one white indurated area present in slices seven and eight. The indurated area is 4.8 cm from the superior soft tissue resection margin, 2.2 cm from the inferior soft tissue resection margin, 0.1 cm from the posterior soft tissue resection margin, 2.9 cm from the anterior soft tissue resection margin, 1.7 cm from the lateral soft tissue resection margin and a 4.1 cm from the medial soft tissue resection margin. Approximately 95% of the specimens yellow-henderson greasy adipose tissue and 5% delicate pink fibrous tissue. The area of induration and surrounding fibroadipose tissue is submitted for histologic examination. Health Claims Examiner sections are submitted in nine cassettes. Cassette Summary: (E1) slice one, superior soft tissue resection margin, perpendicular (E2-E3) indurated area to posterior soft tissue resection margin, slices seven and eight (E4) fibroadipose tissue adjacent and superior to area of induration, slice six (E5) fibroadipose tissue adjacent and inferior to area of induration, the slice nine (E6) anterior soft tissue resection margin, perpendicular (E7) lateral soft tissue resection margin, perpendicular (E8) medial soft tissue resection margin, perpendicular (E9) slice 13, inferior soft tissue resection margin, perpendicular Time of collection: 10:34 AM August 25, 2024. Time into formalin: 10:45 AM August 25, 2024. Processor load time: 12 PM August 26, 2024. Ischemic time: 11 minutes Total fixation time in formalin: 25 hours 15 minutes The ASCO/CAP guidelines related to HER2 and hormone receptor testing in breast specimens have been met and the specimen has been placed in formalin within one hour and fixed in 10% neutral buffered formalin for 6 to 72 hours. FB (under the direct supervision of a pathologist) PATIENT NAME: EARLE FREITAS PATHOLOGY DATE OF : 47 REPORT #: [id number] PHYSICIAN: OLAF ROMERO PCP: KATHY ERAZO PA-C REPORT IS CONFIDENTIAL AND NOT TO BE RELEASED WITHOUT AUTHORIZATION [place] [address] Signed The Gross Description was prepared using a voice recognition system. The report was reviewed for accuracy; however, sound-alike word errors, addition and/or deletions may occur. If there is any question about this report, please contact Client Services. ADDITIONAL NOTES: Immunohistochemical and/or in situ hybridization studies if performed in this case included appropriate positive controls that reacted as expected. This test was developed and its performance characteristics determined by [facility]. It has not been cleared or approved by the U.S. Food and Drug Administration. The FDA has determined that such clearance or approval is not necessary. This test is used for clinical purposes. It should not be regarded as investigational or for research. [facility] is certified under the Clinical Laboratory Improvement Amendments of 1988 (CLIA) as qualified to perform high complexity clinical laboratory testing. PERFORMING LABORATORY: Technical component was performed by [facility], [address] [place] [address] (CLIA# [id number]). Professional interpretation was performed by [facility], [address] [place] [address] (CLIA#: [id number]). REASON FOR ADDENDUM: To document review of material for external testing. ADDENDUM COMMENT: At the request of Dr. Tino Pillai, archived slides and blocks for case [id number] are retrieved on Earle Freitas and reviewed by a pathologist to assess adequacy for Oncotype DX testing. Block E2 is sent to [facility]. NA:[facility] Professional interpretation was performed by [facility], [address] [place] [address] (CLIA# [id number]). Diagnostician: Bienvenido Andrea MD Pathologist Diagnostician: Santa Faria MD Pathologist Electronically Signed 09/21/2024 PATIENT NAME: EARLE FREITAS PATHOLOGY DATE OF : 47 REPORT #: [id number] PHYSICIAN: OLAF PATHOLOGY PCP: KATHY ERAZO PA-C REPORT IS CONFIDENTIAL AND NOT TO BE RELEASED WITHOUT AUTHORIZATION [address] [address] Signed Copies: ~ PATIENT NAME: EARLE FREITAS PATHOLOGY DATE OF : 47 REPORT #: [id number] PHYSICIAN: OLAF PATHOLOGY PCP: KATHY ERAZO PA-C REPORT IS CONFIDENTIAL AND NOT TO BE RELEASED WITHOUT AUTHORIZATION
== END 2024-08-25 14:00 | disposition home or self-care (01) ==
LOC: DS 06:50
PROVIDERS: ATTEND Surgery
PROC: 0HBT0ZZ Excision of Right Breast, Open Approach (ICD-10-PCS; principal; 2024-08-25 09:00)
DX: C50.411 Malignant neoplasm of upper-outer quadrant of right female breast (principal); Z17.0 Estrogen receptor positive status [ER+]; I10 Essential (primary) hypertension; K21.9 Gastro-esophageal reflux disease without esophagitis; E03.9 Hypothyroidism, unspecified; E11.9 Type 2 diabetes mellitus without complications; Z79.85 Long-term (current) use of injectable non-insulin antidiabetic drugs; Z79.84 Long term (current) use of oral hypoglycemic drugs; Z79.4 Long term (current) use of insulin; Z79.899 Other long term (current) drug therapy
CPT/HCPCS: 00400; 38792; 76098; 88307; 88341; 88342; A9541; J0131; J0690; J1100; J1644; J1885; J2270; J2405; J2704; J2765; J3010; J3490; J7121

== ENCOUNTER 2024-10-31 06:40 | Day surgery (SDC) | payer MEDICARE, OTHER ==
--- NOTE | 2024-10-28 11:05 | NUR ---
[address] SPO[address] GASTON IN REGARDS TO PT ANTIBIOTIC. PT TAKING AN INTERMEDIATE. DR GASTON GAVE VERBAL ORDER FOR MACROBID TO BE STOPPED, AND CIPRO 500 MG PO BID FOR 5 DAYS. 1105 SPOKE WITH [facility] FOR VERBAL ORDER. PHARMACY CONFIRMED. 1108 CALLED AND SPOKE WITH PT. UPDATED PT TO STOP TAKING MACROBID AND TO START CIPRO SOON SHE CAN PICK IT UP FROM PHARMACY. PT STATES UNDERSTANDING.
[~2024-10-31] VITALS: Ht 172.7 cm; Wt 115.9 kg
[~2024-10-31 06:40] MED LIST changes: +TRESIBA100 UNIT/1 SQ
[2024-10-31 06:51] VITALS: BP 140/74
[2024-10-31] MEDS ORDERED: SODIUM CHLORIDE 0.9% 20 ML IV ONE (06:55)
[2024-10-31] MEDS ORDERED: LIDOCAINE HCL 1% 30 ML SDV ONE (06:56)
[2024-10-31] MEDS ORDERED: IBLOOD GLUCOSE TEST STRIP 1 EA TEST VI PRN (07:00)
[2024-10-31] MEDS ORDERED: BOTULINUM TOXIN TYPE A 100 UNITS VIAL IM SCH (07:00)
[2024-10-31] MEDS ORDERED: LIDOCAINE HCL 1% 5 ML SDV INJ ONE (07:00)
[2024-10-31] MEDS ORDERED: CEFAZOLIN SODIUM 2 GM/20 ML SYR IV SCH (07:00)
[2024-10-31] MEDS ORDERED: CIPROFLOXACIN500 MG PO (07:05)
[2024-10-31 07:07] LABS: BASOPHILS 1.1 % (0-2); BASOPHILS, ABSOLUTE 0.1 %; EOSINOPHILS 3.7 % (0-6); EOSINOPHILS, ABSOLUTE 0.3; HEMATOCRIT 36.5 % (35.0-50.0); HEMOGLOBIN 12.5 g/dL (12.0-18.0); LYMPHOCYTES 38.5 % (24-44); LYMPHOCYTES, ABSOLUTE 3.1; MCH 29.8 (27-36); MCHC 34.1 g/dl (30-36); MCV 87.3 fl (81-99); MONOCYTES, ABSOLUTE 0.7; NEUTROPHILS 48.7 % (39-80); PLATELET COUNT 245 K/uL (140-440); RBC 4.18 M/ul (4.3-5.7); RDW 14.3 (10.5-15.0)
[2024-10-31 07:16] LABS: BUN/CREATININE RATIO 27.58 (6.0-28.6); CALCIUM 8.9 mg/dL (8.5-10.1); CREATININE, SERUM 0.87 mg/dL (0.55-1.02)
--- NOTE | 2024-10-31 07:37 | NUR ---
VISITED DURING SPIRITUAL CARE ROUNDS. PT IN OVERALL GOOD SPIRITS; NO IMMEDIATE NEEDS. AIRBORNE OPERATIONS MANAGER PROVIDED SUPPORTIVE PRESENCE, HOSPITALITY, PRAYER, FACILITATED INTERACTION WITH THERAPY ANIMAL. PT EXPRESSED GRATITUDE.
[2024-10-31] MEDS ORDERED: ondansetron HCL 4 MG/2 ML VIAL IV PRN (08:00)
[2024-10-31] MEDS ORDERED: MORPHINE SULFATE 4 MG/ML VIAL IV PRN (08:00)
[2024-10-31] MEDS ORDERED: OXYCODONE/APAP 5/325 TAB PO PRN (08:00)
[2024-10-31] MEDS ORDERED: propofoL 200 MG/20 ML VIAL ONE ×2 (09:29→09:57)
[2024-10-31] MEDS ORDERED: LIDOCAINE HCL 2% 5 ML SDV ONE (09:29)
[2024-10-31] MEDS ORDERED: KETOROLAC TROMETHAMINE 30 MG/ML VIAL ONE (09:33)
[2024-10-31 11:08] VITALS: BP 185/100
--- NOTE | 2024-10-31 11:08 | NUR ---
PT ARRIVES TO DS FROM PACU VIA STRETCHER. PT IS A&O AND ANSWERING QUESTIONS APPOPRIATELY. PT REPORTS NO PAIN AT THIS TIME. PT DRINKING WATER WITHOUT DIFFICULTY. PT STATES PRESSURE SENSATION TO VOID FELT AT THIS TIME. PT TO RESTROOM W/THIS RN STANDBY ASSIST. PT STATES SHE WOULD LIKE TO TRY TO GO TO VOID. THIS RN OUTSIDE BATHROOM.
--- NOTE | 2024-10-31 11:22 | NUR ---
[facility] PT ARRIVED IN PACU WIDE AWAKE WITH NO C/O'S. 1020 C/O URGE TO VOID. UP TO BATHROOM WITH ONE PERSON ASSIST. 1035 UNABLE TO VOID. BACK AT BEDSIDE SIPPING ON WATER. 1050 C/O URGE TO VOID. UP TO BATHROOM WITH ONE PERSON ASSIST. 1105 UNABLE TO VOID. BACK AT BEDSIDE. REFILLED WATER. 1108 TO DS UNTIL ABLE TO VOID. REPORT GIVEN TO RN.
--- NOTE | 2024-10-31 11:35 | NUR ---
PT REPORTS NEED TO URINE VOID AGAIN AND TO RESTROOM TO TRY, PT CONTINUES TO BE UNABLE TO URINE VOID, BUT STATES SHE FEELS PRESSURE AND SENSATION TO VOID. PT REPORTS NO PAIN OR NAUSEA, JUST STRONG SENSATION THAT SHE "IS GOING TO PEE PANTS".
--- NOTE | 2024-10-31 11:50 | NUR ---
THIS RN UPDATES MARILIN SIMON ON PT INABILITY TO URINE VOID W/STRONG SENSATION. LET MD KNOW BLADDER SCAN VOLUME >800 ML. VO FOR PT TO RECEIVE 12 SLOVAK JUAREZ CATH IF PT IS UNABLE TO VOID IN 30-40 MINUTES. PT UPDATED ON PLAN OF CARE.
--- NOTE | 2024-10-31 12:00 | NUR ---
PT URINE VOIDS 175 ML OF CLEAR/PINK URINE, NO CLOTS PRESENT. PT STATES DESIRE TO GO HOME. MD UPDATED AND PT OK'ED TO GO HOME. PT EDUCATED ABOUT IMPORTANCE OF GOING TO EMERGENCY DEPARTMENT IF UNABLE TO VOID THIS EVENING, PT STATES VERBAL UNDERSTANDING. PT UNDERSTANDS AT EMERGENCY DEPARTMENT IF NECESSARY, THEY CAN ONLY PLACE 12 ICELANDIC SIZE OF CATHETER, PT STATES SHE WILL KEEP DOCUMENTATION WITH HER IN CASE.
--- NOTE | 2024-10-31 12:10 | NUR ---
VS TAKEN, BLOOD PRESSURE ELEVATED. PT STATES IT IS BECAUSE OF THE PAIN FROM THE BLOOD PRESSURE CUFF AND SHE JUST WANTS TO GO HOME. PT DENIES ANY SOB, DIFFICULTY BREATHING, OR CHEST PAIN AT THIS TIME. PT ENCOURAGED TO USE BLOOD PRESSURE MACHINE AT HOME SHE STATES SHE HAS TO MONITOR BLOOD PRESSURE D/T ELEVATED. PT STATES VERBAL UNDERSTANDING AND STATES IT'LL GO DOWN SOON SHE GETS HOME AND CAN RELAX.
[2024-10-31 12:15] VITALS: BP 198/84
[2024-10-31 12:21] VITALS: BP 184/96
--- NOTE | 2024-10-31 12:30 | NUR ---
DC EDUCATION REITERATED W/PT AT THIS TIME, PT STATES VERBAL UNDERSTANDING AND NO FURTHER QUESTIONS OR NEEDS AT THIS TIME. PT OFF OF UNIT VIA WC TO PASSENGER SIDE OF SISTER'S VEHICLE. PT REPORTS NO FURTHER QUESTIONS OR NEEDS AT THIS TIME. ALL BELONGINGS IN PT POSSESSION.
== END 2024-10-31 12:30 | disposition home or self-care (01) ==
LOC: DS 06:40
PROVIDERS: ATTEND Urology
PROC: 3E0K8GC Introduction of Other Therapeutic Substance into Genitourinary Tract, Via Natural or Artificial Opening Endoscopic (ICD-10-PCS; principal; 2024-10-31 08:40)
DX: N36.42 Intrinsic sphincter deficiency (ISD) (principal); N39.3 Stress incontinence (female) (male); N32.81 Overactive bladder; E11.9 Type 2 diabetes mellitus without complications; M17.0 Bilateral primary osteoarthritis of knee; K21.9 Gastro-esophageal reflux disease without esophagitis; G47.30 Sleep apnea, unspecified; Z79.84 Long term (current) use of oral hypoglycemic drugs; Z99.89 Dependence on other enabling machines and devices
CPT/HCPCS: 00910; 36415; 80048; 85025; J0585; J0690; J1885; J2003; J2704; J7121; L8606

== ENCOUNTER 2024-11-24 07:45 | Day surgery (SDC) | payer MEDICARE, OTHER ==
[~2024-11-24] VITALS: Ht 172.7 cm; Wt 113.6 kg
[~2024-11-24 07:45] MED LIST changes: +BENZONATATE100 MG PO; +CEFAZOLIN SODIUM 2 GM/20 ML SYR IV SCH; +CEFDINIR300 MG PO; +CIPROFLOXACIN500 MG PO; +EFFER-K 10 MEQ10 MEQ PO; +FARXIGA5 MG PO; +GLIPIZIDE5 MG PO; +HEParin SOD (PORCINE) 5,000 UNIT/ML SDV SUB-Q SCH; +HYDROCHLOROTHIA25 MG PO; +IBLOOD GLUCOSE TEST STRIP 1 EA TEST VI PRN; +INDOMETHACIN75 MG PO; +LIDOCAINE HCL 1% 5 ML SDV INJ ONE; +OXYBUTYNIN CHLOR5 MG PO; +OZEMPIC2 MG/0.75 SUB-Q; +POTASSIUM CHLO10 MEQ PO
[2024-11-24 08:10] VITALS: BP 150/77
[2024-11-24] MEDS ORDERED: fentaNYL citrate 100 MCG/2 ML VIAL ONE ×2 (08:15→09:29)
[2024-11-24] MEDS ORDERED: propofoL 200 MG/20 ML VIAL ONE (08:15)
[2024-11-24] MEDS ORDERED: LIDOCAINE HCL 2% 5 ML SDV ONE (08:15)
[2024-11-24] MEDS ORDERED: TRAMADOL HCL50 MG PO (08:32)
[2024-11-24] MEDS ORDERED: ACETAMINOPHEN 1,000 MG/100 ML VIAL ONE (09:29)
[2024-11-24] MEDS ORDERED: ondansetron HCL 4 MG/2 ML VIAL ONE (09:29)
--- NOTE | 2024-11-24 10:25 | NUR ---
11/24/24 1025 Sheets,Erika 1014 PT ARRIVED TO PACU ON 6L VIA MASK, PT RESTING WITH EYES CLOSED. RESP EVEN AND UNLABORED. 1019 PT WOKE TO VERBAL STIMULI AND O2 MASK REMOVED.
[2024-11-24] MEDS ORDERED: OXYCODON-ACETA1 EAC2 PO (10:26)
[2024-11-24] MEDS ORDERED: fentaNYL citrate 50 MCG/ML SDV ONE (10:26)
[2024-11-24] MEDS ORDERED: IBUPROFEN600 MG PO (10:26)
[2024-11-24] MEDS ORDERED: ACETAMINOPHEN500 MG PO (10:26)
[2024-11-24] MEDS ORDERED: LACTATED RINGER'S 1,000 ML IV SCH (10:30)
[2024-11-24] MEDS ORDERED: ACETAMINOPHEN 500 MG TAB PO PRN (10:30)
[2024-11-24] MEDS ORDERED: NALOXONE HCL 0.4 MG SYR IV PRN (10:30)
[2024-11-24] MEDS ORDERED: IBUPROFEN 600 MG TAB PO PRN (10:30)
[2024-11-24] MEDS ORDERED: OXYCODONE/APAP 7.5/325 TAB PO PRN (10:30)
[2024-11-24 10:55] VITALS: BP 157/79
[2024-11-24] MEDS ORDERED: fentaNYL citrate 50 MCG/ML SDV IV PRN (11:00)
[2024-11-24] MEDS ORDERED: SEVOFLURANE 250 ML BTL INH ONE (11:14)
[2024-11-24] MEDS ORDERED: KETOROLAC TROMETHAMINE 15 MG/ML VIAL IV ONE (11:15)
--- NOTE | 2024-11-24 11:20 | NUR ---
1055- PT ARRIVES FROM PACU. PT REPORTS PAIN AT A 5/10 AND NOT NAUSEOUS. PT WANTS TO GET UP TO USE THE RESTROOM. VITAL SIGNS OBTAINED AND BEDSIDE REPORT RECEIVED FROM SHERRIE AVERY WITH FRIEND AT BEDSIDE. SURGICAL SITE SHOWS A SMALL AMOUNT OF RED DRAINAGE. CALL LIGHT IN REACH AND BED IS LOCKED IN THE LOWEST POSITION. 1110- PT UP TO USE THE RESTROOM. PT HAS A STEADY GAIT AND VOIDS 500ML. PT IS ABLE TO RETURN TO ROOM INDEPENDENTLY AND BEGINS TO GET DRESSED. PT IS EDUCATED ON DISCAHRGE CRITERIA AND SHE IS UNDERSTANDING. PT REQUESTS CRANBERRY JUICE AND "WHATEVER" TO EAT.
[2024-11-24 12:02] VITALS: BP 157/70
--- NOTE | 2024-11-24 12:32 | NUR ---
1200-VITAL SIGNS OBTAINED. SURGICAL SITE SHOWS THE SMALL AMOUNT OF DRAINAGE THAT WAS NOTED ON ARRIVAL TO DAY SURGERY. IV REMOVED. 1221- PT IS DRESSED AND ATE PUDDING AND DRANK JUICE. PT DENIES NAUSEA AND REPORTS THAT HER PAIN IS AT A 5/10 BUT DENIES WANTING PAIN MEDICAITON AT THIS TIME. DC INSTRUCTIONS GONE OVER AND QUESTIONS AND CONCERNS ANSWERED. 1225- PT DC FROM DAY SURGERY VIA HOSPITAL WHEELCHAIR. HER FRIEND HAS HER PAPERWORK, EDUCATION AND PRESCRIPTION. PT IS ABLE TO TRANSFER TO FRIENDS CAR WITH NO ISSUES.
--- NOTE | 2024-11-28 10:54 | PATH ---
[facility] [address] [place], [place] [address] Signed SPECIMEN(S): A RIGHT UPPER OUTER QUADRANT BREAST SPECIMEN SOURCE: A. RIGHT UPPER OUTER QUADRANT BREAST CLINICAL HISTORY: Right breast infiltrating ductal carcinoma. FINAL PATHOLOGIC DIAGNOSIS: Breast, right upper outer quadrant, excision: - No residual invasive ductal carcinoma - Prior procedural site changes - Intraductal papillomas without atypia - Usual ductal hyperplasia - Sclerosing adenosis - Two intramammary lymph nodes, negative for metastatic carcinoma (0/2) - Microcalcifications identified in association with nonneoplastic tissue BRP MICROSCOPIC EXAMINATION: Histologic sections of all submitted blocks are examined by light microscopy. These findings, together with the gross examination, support the pathologic diagnosis. GROSS DESCRIPTION: The specimen, labeled and designated "Violet Freitas, " and designated on the requisition "right upper outer quadrant breast," is received in formalin and consists of 109 gram oriented portion of yellow-henderson fibroadipose tissue that is 8.1 x 7.4 x 3.9 cm. A short suture is present and identifies the superior margin; a long suture identifies the lateral margin. The specimen is inked as follows: superior - blue; inferior - green; medial - red; lateral - orange; anterior - yellow; and posterior - black. The specimen is serially sectioned from superior to inferior into 12 slices revealing a 4.4 x 4.2 x 1.9 cm biopsy cavity that contains multiple folded metallic sutures. The biopsy cavity (slices 7-12) is partially surrounded by yellow-white chalky adipose tissue (slice 5-8), is 0.3 cm from the anterior soft tissue margin, 0.2 cm from the posterior soft tissue margin, 3.1 cm from the superior soft tissue margin, abuts the inferior soft tissue margin, 0.5 cm from the medial soft tissue PATIENT NAME: EARLE FREITAS PATHOLOGY DATE OF : 47 REPORT #: [id number] PHYSICIAN: OLAF PATHOLOGY PCP: KATHY ERAZO PA-C REPORT IS CONFIDENTIAL AND NOT TO BE RELEASED WITHOUT AUTHORIZATION [facility] [address] [place], [place] [address] Signed margin, and 0.7 cm from the lateral soft tissue margin. Residual tumor is not grossly identified. The slices containing the cavity are entirely submitted. Every other slice of the biopsy cavity is submitted for histologic examination. Approximately 70% of the remaining specimen is a yellow-henderson greasy adipose tissue and 30% is a white-henderson rubbery fibrous tissue. Technician Helper Instrument sections are submitted in 27 cassettes. Cassette Summary: (A1) slice one, superior soft tissue resection margin, perpendicular (A2) areas of yellow chalky material to anterior soft tissue resection margin, slice five, perpendicular (A3-A8) slice seven with biopsy cavity (A9-A14) slice nine with biopsy cavity (A15-A20) slice 11 with biopsy cavity (A21-A27) slice 12 with biopsy cavity, inferior soft tissue resection margin, perpendicular FB (under the direct supervision of a pathologist) Time of collection: 9:46 AM November 24, 2024. Time into formalin: 9:47 AM November 24, 2024. Processor load time: 9 AM November 25, 2024. Ischemic time: 1 minute Total fixation time in formalin: 23 hours 13 minutes The ASCO/CAP guidelines related to HER2 and hormone receptor testing in breast specimens have been met and the specimen has been placed in formalin within one hour and fixed in 10% neutral buffered formalin for 6 to 72 hours. The Gross Description was prepared using a voice recognition system. The report was reviewed for accuracy; however, sound-alike word errors, addition and/or deletions may occur. If there is any question about this report, please contact Client Services. ADDITIONAL NOTES: Immunohistochemical and/or in situ hybridization studies if performed in this case included appropriate positive controls that reacted as expected. This test was developed and its performance characteristics determined by [facility]. It has not been cleared or approved by the U.S. Food and Drug Administration. The FDA has determined that such clearance or approval is not necessary. This test is used for clinical purposes. It should not be regarded as investigational or for research. [facility] is certified under the Clinical Laboratory Improvement PATIENT NAME: EARLE FREITAS PATHOLOGY DATE OF : 47 REPORT #: [id number] PHYSICIAN: OLAF ROMERO PCP: KATHY ERAZO PA-C REPORT IS CONFIDENTIAL AND NOT TO BE RELEASED WITHOUT AUTHORIZATION [facility] [address] [place] [id number] Signed Amendments of 1988 (CLIA) as qualified to perform high complexity clinical laboratory testing. PERFORMING LABORATORY: Technical component was performed by [facility], [address] [place] [id number] (CLIA# [id number]). Professional interpretation was performed by [facility] � [facility], [address] [facility], [address]st Floor [address], [place] [address] (CLIA#: [id number]). Diagnostician: Bienvenido Andrea MD Pathologist Electronically Signed 11/28/2024 Copies: ~ PATIENT NAME: EARLE FREITAS PATHOLOGY DATE OF : 47 REPORT #: [id number] PHYSICIAN: OLAF PATHOLOGY PCP: KATHY ERAZO PA-C REPORT IS CONFIDENTIAL AND NOT TO BE RELEASED WITHOUT AUTHORIZATION
--- NOTE | 2024-11-29 09:49 | OR ---
[facility] [address], [place] [address] Signed DATE OF OPERATION: 11/24/2024 SURGEON: Rosa Sanchez MD PREOPERATIVE DIAGNOSIS: Right upper outer quadrant multifocal breast cancer, status post right partial mastectomy. Positive margin on second occult lesion. POSTOPERATIVE DIAGNOSIS: Right upper outer quadrant multifocal breast cancer, status post right partial mastectomy. Positive margin on second occult lesion. PROCEDURE: Right partial mastectomy, upper outer quadrant right breast. ANESTHESIA: General LMA, Emil Shepard RINKMAN and local 10 mL of 0.25% Marcaine with epinephrine. INDICATION: This 79-year-old woman is a patient of SARIKA Rodriguez. She had findings of an upper outer quadrant infiltrating ductal carcinoma, considered grade 1. 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 [place] lymph nodes were found to be negative. Additional resection was undertaken in the upper outer aspect from the primary lesion, which showed a separate invasive carcinoma. This would be best characterized as a multifocal right upper outer quadrant infiltrating ductal breast carcinoma. A secondary excision did show a positive margin and on that basis, re-excision of additional tissue by partial mastectomy is recommended. The risk of bleeding, infection, cosmetic deformity, and so forth were all reviewed with her. She understands, wished to proceed. FINDINGS: The area of prior excision was largely well healed and intact and without large seroma cavity. Wide resection was undertaken of the previous excision site, which did include clips that had been used for future radiation marking. There was a density within the substance of the breast tissue excised due to recent breast intervention. The remaining parenchyma was certainly redundant and closure of the cavity was undertaken completely so as to minimize seroma formation. Clips were applied to the excision site to better guide radiation therapy in the future. DESCRIPTION OF PROCEDURE: Electronically Signed By: ROSA SANCHEZ MD 11/29/24 0949 PATIENT NAME: EARLE VILLEGAS OPERATIVE REPORT DATE OF : 47 REPORT #: [id number] PHYSICIAN: ROSA SANCHEZ MD PCP: SUSIE LANE PA-C REPORT IS CONFIDENTIAL AND NOT TO BE RELEASED WITHOUT AUTHORIZATION [facility] [address], [place] [address] Signed The patient was brought to the operating room, given a general LMA type anesthetic. Preoperative antibiotic Ancef was given. Sequential compression device stockings used and heparin subcutaneously administered. The right breast was prepared with a chlorhexidine solution and draped sterilely. It was quite large. The previous incision was in the upper outer aspect on the right side. The axillary incision was well healed. An incision was made in the previous incision site. Dissection carried through the subcutaneous tissue and wide resection undertaken with primarily cautery resection. Wide resection was undertaken in the upper outer aspect, incorporating all of the previously excised tissue. The parenchyma appeared to be well-approximated and healing well. In the very base of the excision site was a seroma cavity that was rather small. This was excised in continuity. The specimen was oriented with a short stitch superior and a long stitch lateral. Irrigation was undertaken with sterile water and any areas of bleeding were secured with electrocautery. The biopsy cavity was once again marked with clips for future reference. The parenchyma was reapproximated with interrupted 2-0 Vicryl suture. Layered closure was undertaken so as to minimize seroma formation. The skin was closed with running subcuticular 3-0 Vicryl. Steri-Strips were applied. The patient was ultimately extubated and transferred to the recovery room in good condition having suffered no complications. Sponge, needle, and instrument counts reported as correct x3. Rosa Sanchez MD /OLGA LIDIAL /[id number] cc: Susie Lane PA-C Copies: SUSIE LANE PA-C ~ Electronically Signed By: ROSA SANCHEZ MD 11/29/24 0949 PATIENT NAME: EARLE VILLEGAS OPERATIVE REPORT DATE OF : 47 REPORT #: [id number] PHYSICIAN: ROSA SANCHEZ MD PCP: SUSIE LANE PA-C REPORT IS CONFIDENTIAL AND NOT TO BE RELEASED WITHOUT AUTHORIZATION
== END 2024-11-24 12:25 | disposition home or self-care (01) ==
LOC: DS 07:45
PROVIDERS: ATTEND Surgery
PROC: 0HBT0ZZ Excision of Right Breast, Open Approach (ICD-10-PCS; principal; 2024-11-24 09:40)
DX: C50.411 Malignant neoplasm of upper-outer quadrant of right female breast (principal); E66.01 Morbid (severe) obesity due to excess calories; Z68.41 Body mass index [BMI] 40.0-44.9, adult; Z79.84 Long term (current) use of oral hypoglycemic drugs; Z79.899 Other long term (current) drug therapy
CPT/HCPCS: 00400; J0131; J0690; J1644; J2003; J2405; J2704; J3010; J7121